=== PATIENT | female | born 1930 | race Caucasian/White ===

== ENCOUNTER 2016-05-17 15:08 | Emergency (ER) | payer OTHER ==
[~2016-05-17] VITALS: Ht 162.6 cm; Wt 67.3 kg
[~2016-05-17 15:08] MED LIST: ATIVAN0.5 M1 PO; ATIVAN0.5 MG PO; ATIVAN1 MG PO; COUMADIN,JANTO7.5 MG PO; COUMADIN,JANTOVE5 MG PO; COUMADIN5 MG PO; COUMADIN7.5 MG PO; LIPITOR40 MG PO; MECLIZINE HCL25 MG PO; NORVASC5 MG PO; TYLENOL REGULA325 MG PO
[2016-05-17 17:25] LABS: MCH 30.2 PG (29.0-34.0); MCV 91.4 FL (83-99); MEAN PLAT.VOLUME 9.4 uM^3 (9.5-12.4); PLATELET COUNT 268 K/uL (156-360); RBC DIS.WIDTH-CV 13.9 % (11.8-14.6); RBC DIS.WIDTH-SD 45.7 % (39-53); RED BLOOD COUNT 5.14 M/uL (3.80-5.20); WHITE BLOOD COUNT 7.9 K/uL (4.1-10.2)
[2016-05-17 17:33] LABS: CHLORIDE 107 mEq/L (99-109); POTASSIUM 3.8 mEq/L (3.7-5.4); SODIUM 141 mEq/L (136-147)
[2016-05-17 17:35] LABS: GLUCOSE 100 mg/dL (70-99)
[2016-05-17 17:36] LABS: ANION GAP 11 MEQ/L (2-14)
[2016-05-17 17:38] LABS: GFR ESTIMATE (CALCULATED) > 59 mL/min/
[2016-05-17 17:39] LABS: UREA NITROGEN (BUN) 15 mg/dL (9-23)
[2016-05-17 17:48] LABS: INTER. NORMALIZED RATIO 4.5
[2016-05-17] MEDS ORDERED: MEDROL DOSEPAK4 MG PO (20:14)
[2016-05-17 20:44] VITALS: BP 128/79
== END 2016-05-17 20:44 | disposition home or self-care (01) ==
LOC: EME 15:08
PROVIDERS: Emergency Medicine
DX: M54.2 Cervicalgia (principal); Z86.718 Personal history of other venous thrombosis and embolism; Z79.01 Long term (current) use of anticoagulants; I10 Essential (primary) hypertension; Z86.711 Personal history of pulmonary embolism
CPT/HCPCS: 70450; 70498; 72126; 80048; 85027; 85610; 99281; 99284; J1100

== ENCOUNTER 2016-06-10 08:10 | Emergency (ER) | payer OTHER ==
[~2016-06-10] VITALS: Ht 160 cm; Wt 66.7 kg
[~2016-06-10 08:10] MED LIST changes: +MEDROL DOSEPAK4 MG PO
[2016-06-10 09:26] LABS: PROTHROMBIN TIME 32.1 (9.2-11.2)
[2016-06-10] MEDS ORDERED: PERCOCET 5/31 TABLET PO (10:45)
[2016-06-10 11:28] VITALS: BP 126/76
== END 2016-06-10 11:30 | disposition home or self-care (01) ==
LOC: EME 08:10
PROVIDERS: Emergency Medicine
DX: S40.012A Contusion of left shoulder, initial encounter (principal); W19.XXXA Unspecified fall, initial encounter; Y92.009 Unspecified place in unspecified non-institutional (private) residence as the place of occurrence of the external cause; M75.02 Adhesive capsulitis of left shoulder; Z86.711 Personal history of pulmonary embolism; Z79.01 Long term (current) use of anticoagulants; I10 Essential (primary) hypertension
CPT/HCPCS: 73030; 85610; 99281; 99284

== ENCOUNTER 2017-09-20 10:06 | Emergency (ER) | payer OTHER ==
[~2017-09-20] VITALS: Ht 162.6 cm; Wt 62.8 kg
[~2017-09-20 10:06] MED LIST changes: +PERCOCET 5/31 TABLET PO
[2017-09-20 11:20] LABS: BASOPHIL (%) 0.4 % (0-1); EOSINOPHIL (%) 0.4 % (0-5); HEMATOCRIT 46.8 % (36.0-46.0); HEMOGLOBIN 15.9 G/DL (11.9-15.5); IMMATURE GRANULOCYTE (%) 0.5 % (0.0-0.7); LYMPHOCYTE (%) 21.5 % (15-42); LYMPHOCYTE COUNT 1.2 K/uL (1.0-2.8); MCH 31.7 PG (29.0-34.0); MCV 93.4 FL (83-99); MONOCYTE COUNT 0.6 K/uL (0-0.8); NEUTROPHIL (%) 66.2 % (45-76); NEUTROPHIL COUNT 3.7 K/uL (1.8-6.4); NRBC (%) 0.4 /100 WBC (0-0); PLATELET COUNT 273 K/uL (156-360); RBC DIS.WIDTH-CV 13.5 % (11.8-14.6); RBC DIS.WIDTH-SD 46.4 % (39-53); RED BLOOD COUNT 5.01 M/uL (3.80-5.20); WHITE BLOOD COUNT 5.6 K/uL (4.1-10.2)
[2017-09-20 11:28] LABS: CHLORIDE 104 mEq/L (99-109); POTASSIUM 4.3 mEq/L (3.7-5.4); SODIUM 141 mEq/L (136-147)
[2017-09-20 11:29] LABS: GLUCOSE 103 mg/dL (70-99)
[2017-09-20 11:33] LABS: CREATININE 0.8 mg/dL (0.6-1.3); GFR ESTIMATE (CALCULATED) > 59 mL/min/
[2017-09-20 11:34] LABS: UREA NITROGEN (BUN) 10 mg/dL (9-23)
[2017-09-20 11:39] LABS: TROP-I INTERPRETATION NEGATIVE; TROPONIN-I < 0.01 ng/mL (0.0-0.30)
[2017-09-20 11:45] LABS: ERTH.SED.RATE 41 MM/HR (0-30)
[2017-09-20 13:46] VITALS: BP 121/75
== END 2017-09-20 13:55 | disposition home or self-care (01) ==
LOC: EME 10:06
PROVIDERS: Emergency Medicine
DX: R51 Headache (principal); J98.4 Other disorders of lung; I49.8 Other specified cardiac arrhythmias; I44.4 Left anterior fascicular block; R94.31 Abnormal electrocardiogram [ECG] [EKG]; I10 Essential (primary) hypertension; E03.9 Hypothyroidism, unspecified; F41.9 Anxiety disorder, unspecified; F32.9 Major depressive disorder, single episode, unspecified; Z79.01 Long term (current) use of anticoagulants; Z86.711 Personal history of pulmonary embolism; Z85.850 Personal history of malignant neoplasm of thyroid; Z90.49 Acquired absence of other specified parts of digestive tract
CPT/HCPCS: 70450; 80048; 84484; 85025; 85610; 85651; 93005; 99281; 99283

== ENCOUNTER 2017-09-21 11:04 | Observation (INO) | payer OTHER ==
[~2017-09-21] VITALS: Ht 162.6 cm; Wt 61.9 kg
[2017-09-21 13:19] LABS: HEMATOCRIT 45.1 % (36.0-46.0); HEMOGLOBIN 15.3 G/DL (11.9-15.5); MCH 31.5 PG (29.0-34.0); MCHC 33.9 G/DL (30.0-36.0); PLATELET COUNT 290 K/uL (156-360); RBC DIS.WIDTH-CV 13.6 % (11.8-14.6); RBC DIS.WIDTH-SD 46.9 % (39-53); RED BLOOD COUNT 4.85 M/uL (3.80-5.20); WHITE BLOOD COUNT 5.3 K/uL (4.1-10.2)
[2017-09-21 13:25] LABS: INTER. NORMALIZED RATIO 3.6
[2017-09-21 13:31] LABS: ALBUMIN 3.9 g/dL (3.2-4.8); CHLORIDE 109 mEq/L (99-109); SODIUM 143 mEq/L (136-147)
[2017-09-21 13:34] LABS: GLUCOSE 96 mg/dL (70-99); TOTAL PROTEIN 6.9 g/dL (6.4-8.3)
[2017-09-21 13:36] LABS: TOTAL BILIRUBIN 0.6 mg/dL (0.0-1.0)
[2017-09-21 13:37] LABS: ALKALINE PHOSPHATASE 90 IU/L (3-129); CREATININE 0.8 mg/dL (0.6-1.3); GFR ESTIMATE (CALCULATED) > 59 mL/min/
[2017-09-21 13:38] LABS: UREA NITROGEN (BUN) 10 mg/dL (9-23)
[2017-09-21 13:39] LABS: AST (GOT) 26 IU/L (2-34)
[2017-09-21 13:40] LABS: ALT (GPT) 17 IU/L (3-49)
[2017-09-21 14:27] LABS: ERTH.SED.RATE 55 MM/HR (0-30)
[2017-09-21 18:22] VITALS: BP 135/79
[2017-09-21 19:30] VITALS: BP 143/89
[2017-09-22 00:25] VITALS: BP 120/69
[2017-09-22 03:54] VITALS: BP 123/77
[2017-09-22 06:51] LABS: HEMATOCRIT 48.6 % (36.0-46.0); HEMOGLOBIN 15.8 G/DL (11.9-15.5); MCH 30.1 PG (29.0-34.0); MCHC 32.5 G/DL (30.0-36.0); MCV 92.6 FL (83-99); PLATELET COUNT 336 K/uL (156-360); RBC DIS.WIDTH-CV 13.3 % (11.8-14.6); RBC DIS.WIDTH-SD 45.6 % (39-53); RED BLOOD COUNT 5.25 M/uL (3.80-5.20); WHITE BLOOD COUNT 6.3 K/uL (4.1-10.2)
[2017-09-22 06:59] LABS: PTT 50.7 SEC (25-37)
[2017-09-22 07:02] LABS: INTER. NORMALIZED RATIO 4.6
[2017-09-22 07:12] LABS: CHLORIDE 107 MEQ/L (99-109); CREATININE 0.8 MG/DL (0.6-1.3); GFR ESTIMATE (CALCULATED) > 59 mL/min/; POTASSIUM 4.5 MEQ/L (3.7-5.4); SODIUM 141 MEQ/L (136-147); UREA NITROGEN (BUN) 14 mg/dL (9-23)
[2017-09-22 07:20] VITALS: BP 127/67
[2017-09-22 07:24] LABS: GLUCOSE 163 mg/dL (70-99)
[2017-09-22 12:09] VITALS: BP 135/80
[2017-09-22] MEDS ORDERED: TOPIRAMATE25 MG PO (13:18)
[2017-09-22] MEDS ORDERED: PREDNISONE10 MG PO (13:23)
[2017-09-22] MEDS ORDERED: COUMADIN2.5 MG PO (13:23)
[2017-09-22] MEDS ORDERED: FIORICET,ESG1 TABLET PO (13:24)
== END 2017-09-22 14:16 | disposition home or self-care (01) ==
LOC: EME 11:04 → EDOF 16:13 → 4SOUTH 16:13 → ENRESERV 16:49 → 4SOUTH 17:55
PROVIDERS: Emergency Medicine; Internal Medicine
DX: R51 Headache (principal); R70.0 Elevated erythrocyte sedimentation rate; H53.149 Visual discomfort, unspecified; R42 Dizziness and giddiness; I10 Essential (primary) hypertension; E78.5 Hyperlipidemia, unspecified; Z85.850 Personal history of malignant neoplasm of thyroid; E89.0 Postprocedural hypothyroidism; G89.29 Other chronic pain; M54.9 Dorsalgia, unspecified; Z86.711 Personal history of pulmonary embolism; Z86.718 Personal history of other venous thrombosis and embolism; Z79.01 Long term (current) use of anticoagulants; I35.0 Nonrheumatic aortic (valve) stenosis; Z96.651 Presence of right artificial knee joint; D45 Polycythemia vera
CPT/HCPCS: 70450; 70551; 71045; 80048; 80053; 85027; 85610; 85651; 85730; 99281; 99285; G0378; J1100; J2270; J2405; J7030; J7512